=== PATIENT | female | born 1985 | race Caucasian/White ===

== ENCOUNTER 2018-02-23 08:47 | Outpatient (CLI) | payer BC ==
[2018-02-23] MEDS ORDERED: Iopamidol 200 41% 50 ML VIAL FS ONE (10:43)
--- NOTE | 2018-02-23 12:25 | RAD ---
HYSTEROSALPINGOGRAM: Date: 02/23/18 HISTORY: Infertility. FINDINGS: After explaining the procedure and answering all questions, uterine cervix was carefully prepped. HSG catheter was carefully advanced into the lower uterine segment and retention balloon inflated. Small amount of Isovue contrast was carefully instilled into the endometrial cavity, showing normal capaci ty and contour. Fallopian tubes were patent with free spill bilaterally. Small air bubble noted at th e left cornua. Excess contrast was aspirated. The patient tolerated the procedure well and was dismissed in good con dition. Fluoro Time: 0.5 minutes. IMPRESSION: Patient bilateral fallopian tubes. Normal HSG. POS: [facility]
== END 2018-02-23 08:48 | disposition home or self-care (01) ==
LOC: RAD 08:47
PROVIDERS: ATTEND Obstetrics & Gynecology Reproductive Endocrinology
DX: N97.9 Female infertility, unspecified (principal)
CPT/HCPCS: 58340; 74740